=== PATIENT | female | born 1995 | race Caucasian/White ===

== ENCOUNTER 2024-09-01 11:38 | Outpatient (CLI) | payer BC, SELFPAY ==
--- NOTE | 2024-09-01 11:30 | CRLHL7_ITS ---
For Patients: As a result of the Century Cures Act, medical imaging exams and procedure reports are released immediately into your electronic medical record. You may view this report before your referring provider. If you have questions, please contact your health care provider. OB ULTRASOUND INDICATION: Ultrasound for dates and viability. TECHNIQUE: Transvaginal 1st trimester OB ultrasound. Grayscale, color, and M-Mode Doppler images. LMP: 07/01/2024. BLU by LMP: 04/07/2025. GA: 8 w, 6 d. Previous US: No. CRL: 2.0 cm. 8 w 4 d. BLU: 04/09/2025. FHR: 178 BPM. Gestational sac: 2.6 cm. Appears within normal limits. Yolk sac: 3.0 mm. Appears within normal limits. Right ovary: 2.4 x 1.3 x 2.4 cm. Left ovary: 2.9 x 1.8 x 1.9 cm. COMMENT: Possible anechoic paraovarian right cyst 1.2 x 0.9 x 1.3 cm. IMPRESSION: 1. Single viable intrauterine . Wilman Christine M.D. Body/Diagnostic Radiologist [email or web address]/Dictated by: Wilman Christine MD @ 09/02/2024 11:41:00 AM (Electronically Signed)
== END 2024-09-01 11:39 | disposition home or self-care (01) ==
LOC: US 11:41
PROVIDERS: Visit Provider Advanced Practice Midwife
DX: Z34.91 Encounter for supervision of normal pregnancy, unspecified, first trimester (principal); Z3A.08 8 weeks gestation of pregnancy
CPT/HCPCS: 76817

== ENCOUNTER 2024-09-01 12:51 | Outpatient (CLI) | payer BC, SELFPAY | END 2024-09-01 12:52 | disposition home or self-care (01) | PROVIDERS: Visit Provider Advanced Practice Midwife | DX: Z34.91 Encounter for supervision of normal pregnancy, unspecified, first trimester (principal); Z3A.08 8 weeks gestation of pregnancy | CPT/HCPCS: 83020; 83021; 85660; 86592; 86703; 86704; 86706; 86762; 86787; 86803; 86850; 86900; 86901; 87086; 87340 ==

== ENCOUNTER 2024-11-20 09:27 | Outpatient (CLI) | payer BC, SELFPAY ==
--- NOTE | 2024-11-20 09:15 | CRLHL7_ITS ---
For Patients: As a result of the Century Cures Act, medical imaging exams and procedure reports are released immediately into your electronic medical record. You may view this report before your referring provider. If you have questions, please contact your health care provider. OB ULTRASOUND GREATER THAN 14 WEEKS, 11/20/2024 CLINICAL HISTORY: anatomy scan. COMPARISON: 09/01/2024. TECHNIQUE: Real time gutierrez-scale imaging of the fetus was performed. Transabdominal imaging performed. FINDINGS: LMP: 07/01/2024. BLU by LMP: 04/07/2025. GA: 20 weeks 2 days. POSITION: Vertex. CERVIX: Visualized. Technique: TA. Length of closed cervix: 4.1 cm. PLACENTA/CORD: Placenta Position: Posterior. Technique: TA. Placenta tip to internal OS: 6.1 cm. Umbilical Cord: 3 vessel cord. Placental Insertion: Central. AMNIOTIC FLUID: 3.0 cm SDP. OBSERVED STRUCTURES: Calvarium/Spine: Cerebellum 2.0 cm, 20 weeks 2 days Cisterna Magna 4.4 mm Nuchal Fold 3.1 mm Lateral Ventricle 7.2 mm CSP Midline Falx Choroid Plexus Spine Abdomen: Stomach Abd Cord Insert Urinary Bladder Kidneys Diaphragm Face: Nose/lips Orbital view Limbs: Upper extremities Lower extremities Hands Feet BIOMETRY: BPD: 4.7 cm, 20 weeks 2 days. 50% HC: 17.8 cm, 20 weeks 2 days. 41% AC: 15.3 cm, 20 weeks 3 days. 51% FL: 3.1 cm, 19 weeks 5 days. 21% FL/AC: 20.37% MARSH/AC: 1.17. Heart Rate: 159 bpm. Age by this US: 20 weeks 1 day. BLU by this US: 04/08/2025. EFW: 333.41 grams. 0 lb 12 oz. Percentile by BLU : 36% IMPRESSION: 1. Concordance of clinical and sonographic dating. 2. Incomplete visualization of the LVOT, 4 chamber heart, RVOT, 3 vessel view, 3 vessel trachea view and profile. Remainder of the anatomic survey normal. Short-term follow-up recommended. Dallin Matta M.D. Diagnostic Radiologist [email or web address] Transcribed: 1:59 pm DW/Dictated by: Dallin Matta MD @ 11/20/2024 11:33:00 AM (Electronically Signed)
== END 2024-11-20 09:28 | disposition home or self-care (01) ==
LOC: US 09:27
PROVIDERS: Visit Provider Advanced Practice Midwife
DX: Z34.92 Encounter for supervision of normal pregnancy, unspecified, second trimester (principal); O35.BXX0 Maternal care for other (suspected) fetal abnormality and damage, fetal cardiac anomalies, not applicable or unspecified; Z3A.20 20 weeks gestation of pregnancy
CPT/HCPCS: 76805

== ENCOUNTER 2024-12-21 09:18 | Outpatient (CLI) | payer BC, SELFPAY ==
--- NOTE | 2024-12-21 09:15 | CRLHL7_ITS ---
For Patients: As a result of the Century Cures Act, medical imaging exams and procedure reports are released immediately into your electronic medical record. You may view this report before your referring provider. If you have questions, please contact your health care provider. OB ULTRASOUND FOLLOW-UP/LIMITED, 12/21/2024 CLINICAL HISTORY: Follow-up anatomy; profile, heart. COMPARISON: 11/20/2024. TECHNIQUE: Real time gutierrez scale imaging of the fetus was performed. Transabdominal imaging performed. FINDINGS: LMP: 07/01/2024. BLU by LMP: 04/07/2025. GA: 24 weeks 5 days. Gestation: Single. Cervix: Not visualized. positioning: Breech. Amniotic fluid: 4.5 cm SDP. IMPRESSION: Normal profile, 4 chamber heart, RVOT, 3 vessel trachea view, 3 vessel view and LVOT. Dallin Matta M.D. Diagnostic Radiologist [email or web address] Transcribed: 11:46 am DW/Dictated by: Dallin Matta MD @ 12/21/2024 10:50:00 AM (Electronically Signed)
== END 2024-12-21 09:19 | disposition home or self-care (01) ==
LOC: US 09:18
PROVIDERS: Visit Provider Advanced Practice Midwife
DX: Z36.2 Encounter for other antenatal screening follow-up (principal); Z3A.24 24 weeks gestation of pregnancy
CPT/HCPCS: 76816

== ENCOUNTER 2025-02-01 13:39 | Outpatient (CLI) | payer BC, SELFPAY | END 2025-02-01 13:40 | disposition home or self-care (01) | LOC: NFLDREF 13:40 | PROVIDERS: Visit Provider Advanced Practice Midwife | DX: R10.11 Right upper quadrant pain (principal); R82.90 Unspecified abnormal findings in urine | CPT/HCPCS: 80053; 87086 ==

== ENCOUNTER 2025-03-10 13:45 | Outpatient (CLI) | payer BC, SELFPAY ==
[2025-03-11 18:53] LABS: Strep B DNA Probe Negative (Negative)
[2025-03-11 21:20] LABS: Strep B Susceptibility Needed? No
== END 2025-03-10 13:46 | disposition home or self-care (01) ==
LOC: NFLDREF 13:48
PROVIDERS: PCP Family Medicine; Visit Provider Advanced Practice Midwife
DX: Z34.93 Encounter for supervision of normal pregnancy, unspecified, third trimester (principal)
CPT/HCPCS: 87081; 87653

== ENCOUNTER 2025-03-31 10:24 | Inpatient (IN) | payer BC, SELFPAY ==
[2025-03-31] VITALS (23 sets, daily range): BP systolic 116–151; BP diastolic 59–85; PULSE 72–186; RESP 16; TEMP 36.5–37.1; O2SAT 77–99
[2025-03-31 10:01] LABS: Amnisure Rom* POSITIVE
--- NOTE | 2025-03-31 11:00 | W.PM.LDBA ---
Subjective History of Present Illness Time Seen by Provider: 10:07 Date Seen: 03/31/25 Narrative: Amelia is a 29 yo at 39 0/7 weeks being admitted to Labor and Delivery for PROM with onset of contractions shortly after ROM at 0430 this morning. She elected to stay home to do some labor management at home and arrived to the unit aroun 930 this morning. She is coping well but feels contractions are about every 5 minutes at this time but mild. She is supported in labor by her , Brian. She plans to have her asthma educator, April, come in later. Her full history and physical was dictated by ANGELIA Green on 03/17/2025. Please see this for details. Specific Issues/Plans Partner: Blade? H&P done for labor admit by [place] 03/17/25 #?Varicella non-immune recommend vaccine PP #?Possible anechoic paraovarian right cyst 1.2 x 0.9 x 1.3 cm. Benign Imaging:??? First Trimester US 09/01/2024: COMMENT: Possible anechoic paraovarian right cyst 1.2 x 0.9 x 1.3 cm. IMPRESSION: Single viable intrauterine . Anatomy US (12/21/2024): IMPRESSION: Normal profile, 4 chamber heart, RVOT, 3 vessel trachea view, 3 vessel view and LVOT. Vaccinations:?? COVID: declines 03/10/2025 Flu: declines?03/10/2025 Tdap: given 02/15/2025 RSV: given 02/15/2025 32 week mental health: completed Last pap:? [Only high-risk abnormal pap results in problem list]? Hep B non-immune, does not work in healthcare and received initial series. OB - Problem Based A/P Additional Plan (1) PROM with onset of labor within 24 hours of rupture: Status: Acute (2) 39 weeks gestation of : Status: Acute Plan ASSESSMENT:? 29 yo at 39 0/7 weeks gestation? complicated by:?varicella non-immune Labor type: Spontaneous, Early labor? Category 1 FHR pattern.?? Labor complicated by: PROM? GBS negative? ? PLAN:? 1. Routine intrapartum cares as ordered. Continue with expectant management. Discussed options for actively managing PROM vs expectant. Reviewed risks of waiting including increased risk of infection. Reviewed that with PROM, onset labor is usually within 12-24 hours and we can wait and assess every 6-12 hours based on how she is feeling and labor status. 2. Monitoring per policy, intermittent? 3. Planning unmedicated . Candidate for analgesia of choice, if desired. 4. Patient encouraged to reposition and ambulate to promote physiologic labor and .? 5. Declines IV or saline lock unless absolutely necessary. IV saline lock not indicated at this time. 6. Anticipate ? Delivery/Labor/Induction Plan Plan: expectant management OB Exam Physical Exam Vital signs: Temp Pulse Resp BP Pulse Ox 97.7 F 86 16 134/60 99 03/31/25 18:19 03/31/25 19:10 03/31/25 18:55 03/31/25 19:10 03/31/25 16:30 Narrative: Vitals Reviewed Constitutional:? Alert and oriented x3 HEENT:? Normocephalic, atraumatic Neck:? Supple Lungs:? Clear to auscultation bilaterally Heart:? Regular rate and rhythm, no murmur, rub or gallop Abdomen:? Soft, nontender, and gravid. Vertex by Kirill's. Confirmed with bedside US. Extremities:? No edema or erythema Cervix: Deferred with ROM NST: 155 bpm/moderate variability/15x15 accelerations/no decelerations/contractions about every 5.5 minutes Detailed Labor and Delivery Exam Patient Gravid: yes
[2025-03-31] MEDS: OMEPRAZOLE 20 MG CAPSULE DR PO (11:03)
[2025-03-31] MEDS: lidocaine HCL 2 % JELLY (TOP) STERILE 6 ML TOPICAL (18:54)
--- NOTE | 2025-03-31 19:24 | W.PM.OBVAGDE ---
OB Procedure Vag Delivery Mother Details Mother Details: The patient is a 29 year-old, 3, now Para 2, admitted on 03/31/25 at 39.0 weeks gestation for PROM with spontaneous onset of labor shortly after. : 3 Para: 2 Weeks Gestation: 39.0 Admission Date: 03/31/25 Additional Details Amniotic Membrane Status: SROM Amniotic Membrane Rupture Date: 03/31/25 Amniotic Membrane Rupture Time: 04:30 Amniotic Membrane Fluid Description: Clear Analgesia/Anesthesia Type: None Waterbirth: No Pitcoin: No (Desired expectant management, pitocin deferred) Intrapartal Events: None Labor Onset: 15:30 Complete: 18:30 Pushin:30 Heart: heart tones during second stage were auscultated once and was reassuring with delivery imminent. Delivery Details Delivery Date: 03/31/25 Delivery Time: 18:40 Route of delivery: Gender: Female Viability: Alive; Heart Rate Present Position at Delivery: OA Delivery Details: Patient was admitted for PROM with spontaneous onset of labor shortly after. She progressed normally. SROM of clear fluid at 0430 am. Patient labored well with movement and position changes, utilized nitrous for a short while. Patient was assumed complete with pushing at 1830. of a viable female at 1840, on the bed kneeling over the barrios bag. Vertex delivered OA. Nuchal cord x1, somersaulted through. No shoulder. Body delivered easily and without incident. passed to mothers abdomen between maternal legs with a vigorous cry. Mother was then assisted to her back. Cord was clamped and cut at > 5 minutes. APGARS were 8 at one minute and 9 at five minutes respectively. Mouth was bulb suctioned. Intact placenta with a 3 vessel cord delivered spontaneously at 1852. Fundus firm. Intact perineum identified. QBL 25 cc. Pitocin was deferred due to minimal bleeding and mutual decision making with patient. Mother and baby stable; mother plans to breastfeed. weight pending. 1 Minute Interval Total Score: 8 5 Minute Interval Total Score: 9 Additional Details Shoulder Dystocia: No Placenta Delivery Time: 18:53 Placental Delivery Description: Spontaneous Delivery repair: Vicryl Procedure Done: Global Blood Loss: 25 Laceration: None Blood Loss Measurement Type: QBL Bakri Used: No Sponge/Need Count Correct: No Cord Vessel Description: 3 Vessels, Nuchal Cord, Tight and Delivered through Event Summary Status: Mother and infant were stable after delivery. Disposition: floor
[2025-03-31] MEDS: IBUPROFEN 600 MG TABLET PO (19:57)
[2025-04-01] VITALS (8 sets, daily range): BP systolic 108–131; BP diastolic 71–79; PULSE 71–81; RESP 16–18; TEMP 36.4–36.9; O2SAT 95–98
[2025-04-01] MEDS: ACETAMINOPHEN 500 MG TABLET 1000 MG PO ×4 (00:11→20:43)
[2025-04-01] MEDS: SIMETHICONE 80 MG TAB.CHEW PO (00:37)
[2025-04-01] MEDS: IBUPROFEN 600 MG TABLET PO ×4 (02:53→22:01)
[2025-04-01] MEDS: OMEPRAZOLE 20 MG CAPSULE DR PO ×2 (04:19→15:52)
[2025-04-01] MEDS: DOCUSATE SODIUM 100 MG CAPSULE PO (08:07)
[2025-04-01] MEDS: CALCIUM CARBONATE 500 MG CHEW PO ×2 (08:28→12:14)
[2025-04-01] MEDS: LANOLIN CREAM 1 APPLIC TOPICAL (08:41)
--- NOTE | 2025-04-01 12:48 | P.OBPN_ITS ---
OB - PN:Subj Subjective Date Seen: 04/01/25 Patient comments OB post-: no complaints, pain well controlled, tolerating diet and flatus present [place] status: and doing well [place] feeding status: exclusively Narrative: Amelia feels well.? Her pain is well controlled with current medications.?She has used oxy twice from cramps. She is wondering about additional doses if she continues to have severe cramping. Reviewed that we could consider one more dose if needed. She has no new complaints.? Urinary output is adequate and she is voiding without difficulty.? Has a good appetite, is tolerating a general diet, is passing flatus, and has not had a bowel movement.? Has scant amount of rubra lochia.? She is ambulating well. She is and overall it is going well but baby is cluster feeding today. Will consider labs with additional elevated blood pressures but they have been WNL since delivery. Continue to monitor. OB - PN: Obj Exam Physical Exam: Vital signs: Temp Pulse Resp BP Pulse Ox O2 Del Method 97.8 F 71 16 120/79 96 Room Air 04/01/25 12:04 04/01/25 12:04 04/01/25 12:04 04/01/25 12:04 04/01/25 12:04 04/01/25 12:04 Narrative: GENERAL APPEARANCE:? normal affect, alert, no distress? MOOD:? appropriate? CHEST:? clear to auscultation and percussion? HEART:? regular rate and rhythm? BREASTS: soft, nontender, no erythema, nipples intact? ABDOMEN:? soft, non-tender the uterine fundus is U/2 and is appropriate for the stage of recovery.? PERINEUM:? mild edema of the perineum, there is a intact perineum that is healing well.? EXTREMITIES:? normal and no edema? OB - PN: A/P Delivery Assessment and Plan (1) Lactating mother: Status: Acute (2) care following vaginal delivery: Status: Acute Plan day: 1 Plan: routine care Comments: Anticipate discharge home tomorrow.
[2025-04-02 03:21] VITALS: BP 109/69; PULSE 73; RESP 16; O2SAT 98
[2025-04-02] MEDS: ACETAMINOPHEN 500 MG TABLET 1000 MG PO (03:23)
[2025-04-02 07:51] VITALS: BP 133/86; PULSE 75; RESP 20; TEMP 36.4; O2SAT 97
[2025-04-02] MEDS: IBUPROFEN 600 MG TABLET PO (07:56)
[2025-04-02] MEDS: DOCUSATE SODIUM 100 MG CAPSULE PO (07:57)
[2025-04-02] MEDS: OMEPRAZOLE 20 MG CAPSULE DR PO (07:59)
[2025-04-02 08:01] VITALS: BP 126/84
--- NOTE | 2025-04-02 13:19 | PM.OBDSVD1 ---
DS: Providers Provider Time Seen by Provider: 08:00 Date Seen: 04/02/25 Date of admission: 03/31/25 10:24 Primary care physician: Not a Local Provider Admitting Clinician: Divina Urbina CNM Attending Physician on discharge: Dolores Garsia CNM Date of Discharge: 04/02/25 DS: Diagnosis Discharge Diagnosis (1) care following vaginal delivery: Status: Acute (2) Lactating mother: Status: Acute Exam Narrative: Exam Narrative: GENERAL APPEARANCE:? normal affect, alert, no distress? MOOD:? appropriate? CHEST:? clear to auscultation and percussion? HEART:? regular rate and rhythm? BREASTS: soft, nontender, no erythema, nipples intact? ABDOMEN:? soft, non-tender the uterine fundus is firm and is appropriate for the stage of recovery.? PERINEUM:? mild edema of the perineum, intact.? EXTREMITIES:? normal and no edema? Const: Vital Signs, click to edit/add: Vital Signs - 24 hr 04/01/25 15:37 04/01/25 19:48 04/01/25 20:43 Temperature 98.5 F 98.0 F 98.0 F Pulse Rate [Left] 81 80 Respiratory Rate 16 16 Blood Pressure [Le ft Arm] 116/73 111/76 Pulse Oximetry 96 98 Oxygen Delivery Me thod Room Air Room Air 04/01/25 22:01 04/02/25 03:21 04/02/25 07:51 Temperature 98.0 F 97.6 F Pulse Rate [Left] 73 75 Respiratory Rate 16 20 Blood Pressure [Le ft Arm] 109/69 133/86 Pulse Oximetry 98 97 Oxygen Delivery Me thod Room Air Room Air 04/02/25 08:01 Temperature Pulse Rate [Left] Respiratory Rate Blood Pressure [Le ft Arm] 126/84 Pulse Oximetry Oxygen Delivery Me thod OB - DS: Summary Hospital Course Hospital Course: The patient is a 29 year old G 3 P 2013 at 39 weeks gestation that was admitted to the Center on 03/31/25 for PROM. She had an uncomplicated vaginal delivery. She delivered a viable female infant. She is breast feeding. the patient has done well. For contraception, her partner is planning to have a vasectomy. We discussed they need to use another method until he has had a post-procedure negative semen analysis; they verbalize understanding. Peripartum Data delivery method: Vaginal complications: none [place] Infant Gender: Female Infant Discharge Plan: Home Status at Discharge Functional status at discharge: independent ambulation Overall status at discharge: patient is progressing back to baseline Time Spent with Patient Time attestation: Total time spent providing and/or coordinating discharge services: 30min Time spent: Greater than 30 minutes Discharge Plan Discharge Disposition: Home, Self-Care Date of Admission: 03/31/25 10:24 Attending Provider on Discharge: Dolores Garsia Primary Care Provider: Provider,Not a Local Condition: Stable Anticipated Discharge Date/Time: 04/02/25 08:20 Discharge Medications: New docusate sodium 100 mg Capsule 100 mg PO BID PRNQty: 30 0RF ibuprofen 600 mg Tablet 600 mg PO Q6H MDD 4 PRN (Reason: pain) Qty: 30 0RF oxycodone 5 mg tablet 5 mg PO BID PRN (Reason: pain) Qty: 5 0RF Continued omeprazole 20 mg capsule,delayed release(DR/EC) 20 mg PO QDAY Qty: 90 1RF Gummies 400 mcg-35 mg- 25 mg-5 mg tablet,chewable 1 tab PO Discharge Orders: Discharge Order (Routine); Ordered 04/02/25 Ordered By: Dolores Garsia Patient Education: OB Vaginal/Breast Feeding Additional Instructions: Discharge instructions were reviewed with the patient including signs and symptoms of infection and home going medications.? Lifting Restrictions: 20 pounds for 6? weeks? ?? Do not drive while taking narcotic pain meds.? Off Work or School for 6 weeks.? ?? Symptoms to report to doctor:? -Bleeding that saturates more than one pad per hour? -Passing clots larger than the size of a golf ball? -Pain not relieved by prescribed medication? -Fever above 100.4 degrees Fahrenheit? -A foul vaginal odor? -Difficulty in emotions, mood and functions? -Thoughts of hurting yourself and/or ? -Painful, reddened area in your breast? -Any drainage, redness or tenderness in your IV/epidural site? -Severe headache that doesn't improve after taking medications? -Changes in vision, including temporary loss of vision, blurred vision, and/or light sensitivity? -Upper abdominal pain (usually under ribs on the right side)? -Decrease in urination or painful, frequent urinating? -Chest pain? -Shortness of breath? -Tenderness or pain with redness and/swelling in the calf(s) of your leg? ?? Virtual or nurse visit in the clinic for a blood pressure check in 3-5 days.? Follow Up in clinic in 2 and 6 weeks.? ?? consultation services are available to all mothers and babies for the first year after delivery.? To make an appointment, please call [phone].? ? Activity Level: Activity as Tolerated Discharge Diet: Regular Follow Up Appointments: Provider,Not a Local [Primary Care Provider, Family Practice] Forms: MyHealth Info Instructions
== END 2025-04-02 10:55 | disposition home or self-care (01) | DRG 560 ==
LOC: OB OUT 10:24 → OB 10:24
PROVIDERS: Admitting Provider Advanced Practice Midwife; Visit Provider Advanced Practice Midwife
DX: O42.02 Full-term premature rupture of membranes, onset of labor within 24 hours of rupture (principal); Z3A.39 39 weeks gestation of pregnancy; Z37.0 Single live birth
CPT/HCPCS: 76815; 84112; 86592; A9270

== ENCOUNTER 2025-05-12 11:19 | Outpatient (CLI) | payer BC, SELFPAY ==
[2025-05-14 20:04] LABS: HPV Source Cervical
[2025-05-20 08:59] LABS: Pap Test Digital Imaging Done
== END 2025-05-12 11:20 | disposition home or self-care (01) ==
PROVIDERS: Visit Provider Midwife
DX: Z12.4 Encounter for screening for malignant neoplasm of cervix (principal)
CPT/HCPCS: 87624; 87625; 88141; 88142; 88175